=== PATIENT | male | born 1985 ===

== ENCOUNTER → 2019-01-04 | Outpatient (CLI) | payer OTHER | END | disposition home or self-care (01) | LOC: ECT 11:14 | DX: F33.2 Major depressive disorder, recurrent severe without psychotic features (principal); Z88.0 Allergy status to penicillin; F41.9 Anxiety disorder, unspecified; Z79.899 Other long term (current) drug therapy; Z81.8 Family history of other mental and behavioral disorders ==

== ENCOUNTER 2019-04-04 06:45 | Outpatient (RCR) | payer OTHER ==
[~2019-04-04] VITALS: Ht 165.1 cm; Wt 62.6 kg
[~2019-04-04 06:45] MED LIST: Methohexital Sodium Syr 100mg/10ml IVP ONE; Midazolam 2mg/2ml Inj ONE; NS 500ML ONE; Succinylcholine 20mg/ml 10ml vial ONE
[2019-04-04] MEDS ORDERED: NS 500ML ONE ×3 (06:46)
[2019-04-04] MEDS ORDERED: Succinylcholine 20mg/ml 10ml vial ONE ×3 (06:46)
[2019-04-04] MEDS ORDERED: Glycopyrrolate 0.2mg/ml 1ml Vial ONE ×2 (06:46)
[2019-04-04] MEDS ORDERED: Midazolam 2mg/2ml Inj ONE (06:46)
[2019-04-04] MEDS ORDERED: Methohexital Sodium Syr 100mg/10ml IVP ONE ×3 (06:46)
[2019-04-04 10:56] VITALS: BP 114/66
[2019-04-04 11:10] VITALS: BP 114/66
[2019-04-04 11:15] VITALS: BP 120/69
[2019-04-04 11:20] VITALS: BP 111/65
[2019-04-04 11:25] VITALS: BP 116/64
[2019-04-04 13:16] VITALS: BP 114/66
[2019-04-06 08:09] VITALS: BP 113/74
[2019-04-06 08:25] VITALS: BP 149/85
[2019-04-06 08:30] VITALS: BP 123/63
[2019-04-06 08:35] VITALS: BP 121/68
[2019-04-06 08:40] VITALS: BP 116/66
[2019-04-09] MEDS ORDERED: Midazolam 2mg/2ml Inj ONE (06:00)
[2019-04-09] MEDS ORDERED: Succinylcholine 20mg/ml 10ml vial ONE (06:00)
[2019-04-09] MEDS ORDERED: Ketorolac 30mg Inj ONE (06:00)
[2019-04-09] MEDS ORDERED: HYDROcodone/Acetamin 5/325 tab ONE (06:00)
[2019-04-09] MEDS ORDERED: NS 500ML ONE (06:00)
[2019-04-09] MEDS ORDERED: Methohexital Sodium Syr 100mg/10ml IVP ONE (06:00)
[2019-04-09 08:56] VITALS: BP 118/76
[2019-04-09] MEDS ORDERED: Ketorolac 30mg Inj IV ONE (09:09)
[2019-04-09 09:10] VITALS: BP 124/67
[2019-04-09 09:15] VITALS: BP 134/59
[2019-04-09 09:20] VITALS: BP 108/68
[2019-04-09 09:25] VITALS: BP 126/67
[2019-04-11] VITALS (7 sets, daily range): BP systolic 117–140; BP diastolic 61–75
[2019-04-11] MEDS ORDERED: Succinylcholine 20mg/ml 10ml vial ONE (08:00)
[2019-04-11] MEDS ORDERED: Midazolam 2mg/2ml Inj ONE (08:00)
[2019-04-11] MEDS ORDERED: NS 500ML ONE (08:00)
[2019-04-11] MEDS ORDERED: Methohexital Sodium Syr 100mg/10ml IVP ONE (08:00)
[2019-04-11] MEDS ORDERED: Glycopyrrolate 0.2mg/ml 1ml Vial ONE (08:00)
[2019-04-13 08:10] VITALS: BP 107/64
[2019-04-13 08:25] VITALS: BP 123/77
[2019-04-13 08:30] VITALS: BP 127/68
[2019-04-13 08:35] VITALS: BP 115/59
[2019-04-13 08:40] VITALS: BP 108/68
[2019-04-16 08:53] VITALS: BP 110/63
[2019-04-16 09:06] VITALS: BP 140/84
[2019-04-16 09:11] VITALS: BP 125/74
[2019-04-16 09:16] VITALS: BP 121/64
[2019-04-16 09:21] VITALS: BP 122/65
[2019-04-18 09:35] VITALS: BP 115/71
[2019-04-18 09:50] VITALS: BP 122/76
[2019-04-18 09:55] VITALS: BP 126/67
[2019-04-18 10:00] VITALS: BP 135/73
[2019-04-18 10:05] VITALS: BP 135/81
[2019-04-20] MEDS ORDERED: Glycopyrrolate 0.2mg/ml 1ml Vial ONE (08:00)
[2019-04-20] MEDS ORDERED: NS 500ML ONE (08:00)
[2019-04-20] MEDS ORDERED: Midazolam 2mg/2ml Inj ONE (08:00)
[2019-04-20] MEDS ORDERED: Methohexital Sodium Syr 100mg/10ml IVP ONE (08:00)
[2019-04-20] MEDS ORDERED: Succinylcholine 20mg/ml 10ml vial ONE (08:00)
[2019-04-20 09:30] VITALS: BP 115/73
[2019-04-20 09:45] VITALS: BP 132/78
[2019-04-20 09:50] VITALS: BP 129/71
[2019-04-20 09:55] VITALS: BP 122/78
[2019-04-20 10:00] VITALS: BP 123/69
[2019-04-23] MEDS ORDERED: Ketamine 500mg Inj ONE (07:00)
[2019-04-23] MEDS ORDERED: Glycopyrrolate 0.2mg/ml 1ml Vial ONE (07:00)
[2019-04-23] MEDS ORDERED: NS 500ML ONE (07:00)
[2019-04-23] MEDS ORDERED: Midazolam 2mg/2ml Inj ONE (07:00)
[2019-04-23] MEDS ORDERED: Succinylcholine 20mg/ml 10ml vial ONE (07:00)
[2019-04-23 07:39] VITALS: BP 113/74
[2019-04-23] MEDS ORDERED: Atropine Sulfate 0.4mg/ml inj IVP PRN (07:59)
[2019-04-23 08:00] VITALS: BP 134/96
[2019-04-23 08:05] VITALS: BP 152/96
[2019-04-23 08:10] VITALS: BP 126/78
[2019-04-23 08:15] VITALS: BP 127/75
[2019-04-25] MEDS ORDERED: Ketamine 500mg Inj ONE (07:00)
[2019-04-25] MEDS ORDERED: Succinylcholine 20mg/ml 10ml vial ONE (07:00)
[2019-04-25] MEDS ORDERED: Glycopyrrolate 0.2mg/ml 1ml Vial ONE (07:00)
[2019-04-25] MEDS ORDERED: Ketorolac 60mg Inj IM ONE (07:00)
[2019-04-25] MEDS ORDERED: Midazolam 2mg/2ml Inj ONE (07:00)
[2019-04-25] MEDS ORDERED: NS 500ML ONE (07:00)
[2019-04-25 09:01] VITALS: BP 116/75
[2019-04-25 09:20] VITALS: BP 114/58
[2019-04-25 09:25] VITALS: BP 122/82
[2019-04-25 09:30] VITALS: BP 138/60
[2019-04-25 09:35] VITALS: BP 137/60
[2019-04-27] MEDS ORDERED: Midazolam 2mg/2ml Inj ONE (06:00)
[2019-04-27] MEDS ORDERED: Ketorolac 30mg Inj ONE (06:00)
[2019-04-27] MEDS ORDERED: Dexamethasone 4mg/ml vial ONE (06:00)
[2019-04-27] MEDS ORDERED: Succinylcholine 20mg/ml 10ml vial ONE (06:00)
[2019-04-27] MEDS ORDERED: Ketamine 500mg Inj ONE (06:00)
[2019-04-27] MEDS ORDERED: Glycopyrrolate 0.2mg/ml 1ml Vial ONE (06:00)
[2019-04-27] MEDS ORDERED: NS 500ML ONE (06:00)
[2019-04-27 09:46] VITALS: BP 114/74
[2019-04-27 10:00] VITALS: BP 114/65
[2019-04-27 10:05] VITALS: BP 126/57
[2019-04-27 10:10] VITALS: BP 131/78
[2019-04-27 10:15] VITALS: BP 130/70
== END 2019-04-28 | disposition home or self-care (01) ==
LOC: ECT 06:45
DX: F33.2 Major depressive disorder, recurrent severe without psychotic features (principal)
CPT/HCPCS: 90870; J0330; J1100; J1885; J2250; J2405; J3490; J7040

== ENCOUNTER 2019-05-02 11:19 | Outpatient (RCR) | payer OTHER ==
[~2019-05-02] VITALS: Ht 165.1 cm; Wt 62.6 kg
[2019-05-02 10:40] VITALS: BP 121/72
[2019-05-02 10:55] VITALS: BP 117/50
[2019-05-02 11:00] VITALS: BP 117/57
[2019-05-02 11:05] VITALS: BP 134/84
[2019-05-02 11:10] VITALS: BP 127/71
[~2019-05-02 11:19] MED LIST changes: +Dexamethasone 4mg/ml vial ONE; +Glycopyrrolate 0.2mg/ml 1ml Vial ONE; +Ketamine 500mg Inj ONE; +Ketorolac 30mg Inj ONE; -Methohexital Sodium Syr 100mg/10ml IVP ONE
[2019-05-02] MEDS ORDERED: NS 500ML ONE (11:20)
[2019-05-02] MEDS ORDERED: Ketamine 500mg Inj ONE (11:20)
[2019-05-02] MEDS ORDERED: Dexamethasone 4mg/ml vial ONE (11:20)
[2019-05-02] MEDS ORDERED: Glycopyrrolate 0.2mg/ml 1ml Vial ONE (11:20)
[2019-05-02] MEDS ORDERED: Succinylcholine 20mg/ml 10ml vial ONE (11:20)
[2019-05-02] MEDS ORDERED: Midazolam 2mg/2ml Inj ONE (11:20)
[2019-05-02] MEDS ORDERED: Ketorolac 30mg Inj ONE (11:20)
[2019-05-04 09:00] VITALS: BP 130/81
[2019-05-04 09:15] VITALS: BP 142/66
[2019-05-04 09:20] VITALS: BP 145/82
[2019-05-04 09:25] VITALS: BP 138/80
[2019-05-04 09:30] VITALS: BP 141/72
[2019-05-07] MEDS ORDERED: Midazolam 2mg/2ml Inj ONE (06:00)
[2019-05-07] MEDS ORDERED: Dexamethasone 4mg/ml vial ONE (06:00)
[2019-05-07] MEDS ORDERED: Ketorolac 30mg Inj ONE (06:00)
[2019-05-07] MEDS ORDERED: Ketamine 500mg Inj ONE (06:00)
[2019-05-07] MEDS ORDERED: Glycopyrrolate 0.2mg/ml 1ml Vial ONE (06:00)
[2019-05-07] MEDS ORDERED: Succinylcholine 20mg/ml 10ml vial ONE (06:00)
[2019-05-07] MEDS ORDERED: NS 500ML ONE (06:00)
[2019-05-07 09:18] VITALS: BP 122/73
[2019-05-07 09:30] VITALS: BP 133/69
[2019-05-07 09:35] VITALS: BP 149/82
[2019-05-07 09:40] VITALS: BP 133/73
[2019-05-07 09:45] VITALS: BP 135/53
[2019-05-11] MEDS ORDERED: Glycopyrrolate 0.2mg/ml 1ml Vial ONE (06:00)
[2019-05-11] MEDS ORDERED: Dexamethasone 4mg/ml vial ONE (06:00)
[2019-05-11] MEDS ORDERED: Succinylcholine 20mg/ml 10ml vial ONE (06:00)
[2019-05-11] MEDS ORDERED: Ketorolac 30mg Inj ONE (06:00)
[2019-05-11] MEDS ORDERED: NS 500ML ONE (06:00)
[2019-05-11] MEDS ORDERED: Ketamine 500mg Inj ONE (06:00)
[2019-05-11] MEDS ORDERED: Midazolam 2mg/2ml Inj ONE (06:00)
[2019-05-11 08:25] VITALS: BP_SYST 125; BP_SYST 143; BP_DIAS 82; BP_DIAS 83
[2019-05-11 08:30] VITALS: BP 149/89
[2019-05-11 08:35] VITALS: BP 136/77
[2019-05-11 08:40] VITALS: BP 133/80
[2019-05-14] MEDS ORDERED: Midazolam 2mg/2ml Inj ONE (06:00)
[2019-05-14] MEDS ORDERED: Ketorolac 30mg Inj ONE (06:00)
[2019-05-14] MEDS ORDERED: Glycopyrrolate 0.2mg/ml 1ml Vial ONE (06:00)
[2019-05-14] MEDS ORDERED: Succinylcholine 20mg/ml 10ml vial ONE (06:00)
[2019-05-14] MEDS ORDERED: Ketamine 500mg Inj ONE (06:00)
[2019-05-14] MEDS ORDERED: NS 500ML ONE (06:00)
[2019-05-14] MEDS ORDERED: Dexamethasone 4mg/ml vial ONE (06:00)
[2019-05-14 09:34] VITALS: BP 120/79
[2019-05-14 09:50] VITALS: BP 126/75
[2019-05-14 09:55] VITALS: BP 154/82
[2019-05-14 10:00] VITALS: BP 132/80
[2019-05-14 10:05] VITALS: BP 133/80
[2019-05-16] MEDS ORDERED: Midazolam 2mg/2ml Inj ONE (08:00)
[2019-05-16] MEDS ORDERED: Ketorolac 60mg Inj IM ONE (08:00)
[2019-05-16] MEDS ORDERED: NS 500ML ONE (08:00)
[2019-05-16] MEDS ORDERED: Dexamethasone 4mg/ml vial ONE (08:00)
[2019-05-16] MEDS ORDERED: Succinylcholine 20mg/ml 10ml vial ONE (08:00)
[2019-05-16] MEDS ORDERED: Glycopyrrolate 0.2mg/ml 1ml Vial ONE (08:00)
[2019-05-16] MEDS ORDERED: Ketamine 500mg Inj ONE (08:00)
[2019-05-16 09:41] VITALS: BP 130/69
[2019-05-16 10:05] VITALS: BP 115/56
[2019-05-16 10:10] VITALS: BP 127/70
[2019-05-16 10:15] VITALS: BP 112/52
[2019-05-16 10:20] VITALS: BP 116/50
[2019-05-21] MEDS ORDERED: NS 500ML ONE (06:00)
[2019-05-21] MEDS ORDERED: Dexamethasone 4mg/ml vial ONE (06:00)
[2019-05-21] MEDS ORDERED: Midazolam 2mg/2ml Inj ONE (06:00)
[2019-05-21] MEDS ORDERED: Ketamine 500mg Inj ONE (06:00)
[2019-05-21] MEDS ORDERED: Glycopyrrolate 0.2mg/ml 1ml Vial ONE (06:00)
[2019-05-21] MEDS ORDERED: Succinylcholine 20mg/ml 10ml vial ONE (06:00)
[2019-05-21] MEDS ORDERED: Ketorolac 30mg Inj ONE (06:00)
[2019-05-21 09:11] VITALS: BP 125/82
[2019-05-21 09:25] VITALS: BP 116/57
[2019-05-21 09:30] VITALS: BP 138/80
[2019-05-21 09:35] VITALS: BP 130/67
[2019-05-21 09:40] VITALS: BP 122/55
[2019-05-28] MEDS ORDERED: NS 500ML ONE (06:00)
[2019-05-28] MEDS ORDERED: Ketamine 500mg Inj ONE (06:00)
[2019-05-28] MEDS ORDERED: Glycopyrrolate 0.2mg/ml 1ml Vial ONE (06:00)
[2019-05-28] MEDS ORDERED: Succinylcholine 20mg/ml 10ml vial ONE (06:00)
[2019-05-28] MEDS ORDERED: Midazolam 2mg/2ml Inj ONE (06:00)
[2019-05-28] MEDS ORDERED: Ketorolac 30mg Inj ONE (06:00)
[2019-05-28] MEDS ORDERED: Dexamethasone 4mg/ml vial ONE (06:00)
[2019-05-28 08:35] VITALS: BP 127/91
[2019-05-28 08:48] VITALS: BP 130/83
[2019-05-28 08:53] VITALS: BP 151/87
[2019-05-28 08:58] VITALS: BP 144/85
[2019-05-28 09:03] VITALS: BP 143/64
== END 2019-05-28 | disposition home or self-care (01) ==
LOC: ECT 11:19
DX: F33.2 Major depressive disorder, recurrent severe without psychotic features (principal)
CPT/HCPCS: 90870; J0330; J1100; J1885; J2250; J2405; J3490; J7040

== ENCOUNTER 2019-06-04 09:25 | Outpatient (RCR) | payer MEDICAID, OTHER ==
[~2019-06-04] VITALS: Ht 165.1 cm; Wt 62.6 kg
[2019-06-04] MEDS ORDERED: NS 500ML ONE ×2 (09:26)
[2019-06-04] MEDS ORDERED: Dexamethasone 4mg/ml vial ONE (09:26)
[2019-06-04] MEDS ORDERED: Glycopyrrolate 0.2mg/ml 1ml Vial ONE ×2 (09:26)
[2019-06-04] MEDS ORDERED: Succinylcholine 20mg/ml 10ml vial ONE ×2 (09:26)
[2019-06-04] MEDS ORDERED: Ketorolac 60mg Inj IM ONE ×2 (09:26)
[2019-06-04] MEDS ORDERED: Midazolam 2mg/2ml Inj ONE ×2 (09:26)
[2019-06-04] MEDS ORDERED: Methohexital Sodium Syr 100mg/10ml IVP ONE ×2 (09:26)
[2019-06-04 11:30] VITALS: BP 129/87
[2019-06-04 11:50] VITALS: BP 129/65
[2019-06-04 11:55] VITALS: BP 125/58
[2019-06-04 12:00] VITALS: BP 134/76
[2019-06-04 12:05] VITALS: BP 124/74
[2019-06-15 09:48] VITALS: BP 125/79
[2019-06-15 10:05] VITALS: BP 131/85
[2019-06-15 10:10] VITALS: BP 131/71
[2019-06-15 10:15] VITALS: BP 136/72
[2019-06-15 10:20] VITALS: BP 131/69
== END 2019-06-28 | disposition home or self-care (01) ==
LOC: ECT 09:25
DX: F33.2 Major depressive disorder, recurrent severe without psychotic features (principal)
CPT/HCPCS: 90870; J2250; J2405

== ENCOUNTER 2019-06-29 04:30 | Outpatient (RCR) | payer MEDICAID, OTHER ==
[~2019-06-29] VITALS: Ht 165.1 cm; Wt 62.6 kg
[2019-06-29] MEDS ORDERED: Succinylcholine 20mg/ml 10ml vial ONE (04:31)
[2019-06-29] MEDS ORDERED: Midazolam 2mg/2ml Inj ONE (04:31)
[2019-06-29] MEDS ORDERED: Glycopyrrolate 0.2mg/ml 1ml Vial ONE (04:31)
[2019-06-29] MEDS ORDERED: Ketorolac 60mg Inj IM ONE (04:31)
[2019-06-29] MEDS ORDERED: Methohexital Sodium Syr 100mg/10ml IVP ONE (04:31)
[2019-06-29] MEDS ORDERED: Dexamethasone 4mg/ml vial ONE (04:31)
[2019-06-29] MEDS ORDERED: NS 500ML ONE (04:31)
[2019-06-29 08:24] VITALS: BP 131/83
[2019-06-29 08:45] VITALS: BP 127/72
[2019-06-29 08:50] VITALS: BP 125/49
[2019-06-29 08:55] VITALS: BP 135/65
[2019-06-29 09:00] VITALS: BP 134/74
[2019-07-25] MEDS ORDERED: NS 500ML ONE (09:00)
[2019-07-25] MEDS ORDERED: Methohexital Sodium Syr 100mg/10ml IVP ONE (09:00)
[2019-07-25] MEDS ORDERED: Midazolam 2mg/2ml Inj ONE (09:00)
[2019-07-25] MEDS ORDERED: Dexamethasone 4mg/ml vial ONE (09:00)
[2019-07-25] MEDS ORDERED: Glycopyrrolate 0.2mg/ml 1ml Vial ONE (09:00)
[2019-07-25] MEDS ORDERED: Ketorolac 60mg Inj IM ONE (09:00)
[2019-07-25] MEDS ORDERED: Succinylcholine 20mg/ml 10ml vial ONE (09:00)
[2019-07-25 09:38] VITALS: BP 131/84
[2019-07-25 09:50] VITALS: BP 119/62
[2019-07-25 09:55] VITALS: BP 134/78
[2019-07-25 10:00] VITALS: BP 124/58
[2019-07-25 10:05] VITALS: BP 126/72
== END 2019-07-28 | disposition home or self-care (01) ==
LOC: ECT 04:30
DX: F33.2 Major depressive disorder, recurrent severe without psychotic features (principal)
CPT/HCPCS: 90870; J2250; J2405

== ENCOUNTER 2019-08-20 07:39 | Outpatient (RCR) | payer OTHER ==
[~2019-08-20] VITALS: Ht 30.5 cm; Wt 0.5 kg
[2019-08-20] MEDS ORDERED: Glycopyrrolate 0.2mg/ml 1ml Vial ONE (07:40)
[2019-08-20] MEDS ORDERED: Methohexital Sodium 500mg Vial IVP ONE (07:40)
[2019-08-20] MEDS ORDERED: Succinylcholine 20mg/ml 10ml vial ONE (07:40)
[2019-08-20] MEDS ORDERED: Ketorolac 60mg Inj IM ONE (07:40)
[2019-08-20] MEDS ORDERED: NS 500ML ONE (07:40)
[2019-08-20] MEDS ORDERED: Midazolam 2mg/2ml Inj ONE (07:40)
[2019-08-20] MEDS ORDERED: Dexamethasone 4mg/ml vial ONE (07:40)
[2019-08-20 10:55] VITALS: BP_SYST 104; BP_SYST 117; BP_DIAS 61; BP_DIAS 75
[2019-08-20 11:00] VITALS: BP 114/78
[2019-08-20 11:05] VITALS: BP 104/45
[2019-08-20 11:10] VITALS: BP 121/63
== END 2019-08-28 | disposition home or self-care (01) ==
LOC: ECT 07:39
DX: F33.2 Major depressive disorder, recurrent severe without psychotic features (principal)
CPT/HCPCS: 90870; J2250; J2405; J3490

== ENCOUNTER 2019-10-15 05:18 | Outpatient (RCR) | payer MEDICAID, OTHER ==
[~2019-10-15] VITALS: Ht 165.1 cm; Wt 62.6 kg
[2019-10-15] MEDS ORDERED: Dexamethasone 4mg/ml vial ONE (05:19)
[2019-10-15] MEDS ORDERED: NS 500ML ONE (05:19)
[2019-10-15] MEDS ORDERED: Methohexital Sodium Syr 100mg/10ml IVP ONE (05:19)
[2019-10-15] MEDS ORDERED: Ketorolac 60mg Inj IM ONE (05:19)
[2019-10-15] MEDS ORDERED: Succinylcholine 20mg/ml 10ml vial ONE (05:19)
[2019-10-15] MEDS ORDERED: Glycopyrrolate 0.2mg/ml 1ml Vial ONE (05:19)
[2019-10-15] MEDS ORDERED: Midazolam 2mg/2ml Inj ONE (05:19)
[2019-10-15 08:32] VITALS: BP 120/80
[2019-10-15 08:45] VITALS: BP 141/79
[2019-10-15 08:50] VITALS: BP 143/56
[2019-10-15 08:55] VITALS: BP 122/51
[2019-10-15 09:00] VITALS: BP 123/64
== END 2019-10-27 | disposition home or self-care (01) ==
LOC: ECT 05:18
DX: F33.1 Major depressive disorder, recurrent, moderate (principal)
CPT/HCPCS: 90870; J0330; J1100; J2250; J2405; J7040